=== PATIENT | male | born 1950 | race Caucasian/White ===

== ENCOUNTER 2025-02-10 10:00 | Emergency (ER) | payer OTHER, SELFPAY ==
[2025-02-10] VITALS (7 sets, daily range): BP systolic 104–158; BP diastolic 69–103; BMI 22.3
--- NOTE | 2025-02-10 10:19 | ED.GENMED ---
History of Present Illness
General
Chief Complaint: Fainting Sensation
Source: patient and spouse
Exam Limitations: none
Time Seen by Provider: 02/10/25 10:02
Nursing documentation reviewed up to this point in time: agreed with
History of Present Illness
History of Present Illness:
75-year-old male near-syncopal event while at [employer] just prior to arrival with standing, has some abdominal cramping likely to have a bowel movement felt flushed and was passed out no chest pain or shortness of breath has a AICD defibrillator no
shocks, no chest pain or shortness of breath no bloody stools no fever now he states he is feeling better he has had cardiac stent before, has been to [facility] in [facility] previously recently moved to the [facility]
Past History
Past History
ED Past Medical History: Arrthythmia and CAD
ED Past Surgical History: Cardiac
Social History
Tobacco: Non-smoker
Alcohol: None
Personal:
Living: with family
Review of Systems
Review of Systems
All Other Systems: Not applicable
Constitutional: Denies fever or fatigue
Cardiac: Reports syncope (Near syncope); Denies diaphoresis
ABD/GI: Reports abdominal pain (Abdominal cramp)
Neurological: Reports no symptoms
Endocrine: Reports no symptoms
Hematologic/Lymphatic: Reports no symptoms
Phy Exam
Physical Exam
Physical Exam:
Physical Exam
General: no apparent distress, not acutely ill
Neck: No tongue bite
Heart: s1/s2 regular rate and rhythm, no murmur. equal radial pulses.
Lungs: no acute respiratory distress. clear bilaterally
Abdomen: Nontender
Neuro: alert and oriented. no focal neurological deficits
Skin: no rash
Psychiatric: well kept. interactive and cooperative
Extremities: no edema. no calf tenderness.
Course
Orders/Labs/Results
Orders:
Orders
02/10/25 10:03
Electrocardiogram (*1) Urgent
Reason for Study: Chest Pain
Cardiac Monitoring- Treatment ONCE
EKG- Treatment ONCE
02/10/25 10:14
Complete Blood Count/With Diff Urgent
Comprehensive Metabolic Panel Urgent
Magnesium Urgent
Comment: ADD ON
Troponin I Urgent
02/10/25 10:18
Add On- LAB Urgent
Tests Added?: magnesium
Interrogate Pacemaker- Treatment ONCE
02/10/25 10:28
Prothrombin Time Urgent
Abnormal Lab Results
02/10/25 02/10/25
10:14 10:28
Hct 36.2 L %
(37.0-47.0)
Absolute Lymphs (auto) 1.1 L 10^3/uL
(1.2-3.4)
Absolute Monos (auto) 0.7 H 10^3/uL
(0.1-0.6)
Lymphocytes % 13.1 L %
(20.5-51.1)
PT 26.0 H Sec
(11.4-14.6)
BUN 23 H mg/dl
(9-20)
Glucose 148 H mg/dl
(70-99)
Total Protein 5.9 L g/dl
(6.3-8.2)
02/10/25 10:14
02/10/25 10:14
Vital Signs
Initial and Last Documented VS:
Initial Vital Signs
Pulse Resp Pulse Ox
69 21 99
02/10/25 10:03 02/10/25 10:03 02/10/25 10:03
Last Documented Vital Signs
Temp Pulse Resp BP Pulse Ox
98 F 65 16 158/85 95
02/10/25 10:04 02/10/25 10:30 02/10/25 10:30 02/10/25 10:07 02/10/25 10:30
MDM/Problems Addressed
Differential Diagnosis Includes:
Vasovagal, arrhythmia doubt ACS or PE
MDM/Problems Addressed:
You are seen
Chronic conditions affecting care: CAD and Arrhythmia
Acute Exacerbation and/or Progression of Chronic Illness: CAD and Arrhythmia
*Pulse Oximetry
SaO2: 100
Oxygen Mode of Delivery: Room air
Patient hypoxic: no
*EKG
Interpreted by ED Provider?: Yes
Interpretation: normal
Comparison EKG: no comparison EKG present
Heart Rate: 88
Rate: normal
Rhythm: sinus
Ischemia: non-specific ST changes
*Collection Clerk Interpretation
Rate: normal
Interpretation: normal
Heart Rate: 88
Rhythm: sinus
*Critical Care Note
Total Time (30-74mins, 75-104mins- exclusive of procedures): Not Applicable
Update Note
Update Note:
11:30 AM verbal report from nursing through [facility] no arrhythmia or shock
ED Attending Note
-
Portions of this chart may have been created with voice recognition software.� Occasional wrong word or��sound alike� substitutions may have occurred due to the inherent limitations of voice recognition software.
Discharge Plan
Departure
Referrals:
NONE,* [Family Provider, Internal Medicine]
Interventions
Interventions:
*Risk Screen - Suicide Last Done: 02/10/25 10:04
*General Assessment Last Done: 02/10/25 10:04
*Neglect/Abuse Screening Last Done: 02/10/25 10:04
ED- Cardiac Assessment Last Done: 02/10/25 10:46
ED- Neurological Assessment Last Done: 02/10/25 10:46
Discharge Date and Time
Print Language: ANGOLAN
[2025-02-10 10:22] LABS: % Basophils 0.4 % (0-2); % Eosinophils 3.8 % (0-6); % Immature Granulocytes 0.4 % (0-0.5); % Lymphocytes 13.1 % (20.5-51.1); % Monocytes 8.6 % (1.7-9.3); % Neutrophils 73.7 % (42.2-75.2); Absolute Eosinophils 0.3 10^3/uL (0-0.7); Absolute Lymphocytes 1.1 10^3/uL (1.2-3.4); Absolute Monocytes 0.7 10^3/uL (0.1-0.6); Absolute Neutrophils 6.1 10^3/uL (1.4-6.5); Hematocrit 36.2 % (37.0-47.0); Hemoglobin 12.7 g/dL (12.0-16.0); Mean Corp Hgb Conc. 35.1 g/dL (33.0-37.0); Mean Corpuscular Hgb 29.3 pg (27.0-31.0); Mean Corpuscular Volume 83.4 fL (81.0-99.0); Nucleated Red Blood Cells % 0 %; Platelet Count 193 10^3/uL (130-400); Red Blood Cell Count 4.34 10^6/uL (4.20-5.40); Red Cell Dist. Width 13.9 % (11.5-14.5); White Blood Cell Count 8.2 10^3/uL (4.8-10.8)
[2025-02-10 10:39] LABS: ALT (SGPT) 16 U/L (0-50); AST (SGOT) 21 U/L (17-59); Albumin 3.6 g/dl (3.5-5.0); Alkaline Phosphatase 45 U/L (38-126); Blood Urea Nitrogen 23 mg/dl (9-20); Calcium 9.3 mg/dl (8.4-10.2); Carbon Dioxide 27 mmol/L (22-30); Chloride 105 mmol/L (98-107); Estimated Creatinine Clearance 57 ml/min; Glucose 148 mg/dl (70-99); Magnesium 2.2 mg/dl (1.6-2.3); Potassium 4.7 mmol/L (3.5-5.1); Sodium 138 mmol/L (135-145); Total Bilirubin 0.5 mg/dl (0.2-1.3); Total Protein 5.9 g/dl (6.3-8.2); eGFR > 60.00
[2025-02-10 10:43] LABS: INR 2.38
[2025-02-10 10:46] LABS: Troponin I < 0.012 ng/ml
--- NOTE | 2025-02-10 11:28 | EDRN ---
[employer] [facility] rep called and said to this nurse no recent ventricular rhythms or tachycardia. device working fine.
--- NOTE | 2025-02-10 11:29 | EDRN ---
Dr. Monahan informed of device report from rep.
--- NOTE | 2025-02-10 12:34 | EDRN ---
Repeat troponin drawn and sent.
[2025-02-10 13:09] LABS: Troponin I < 0.012 ng/ml
== END 2025-02-10 14:32 | disposition home or self-care (01) ==
LOC: EMR 10:00
PROVIDERS: EMERGENCY PHYSICIAN Emergency Medicine
DX: R55 Syncope and collapse (principal); I25.10 Atherosclerotic heart disease of native coronary artery without angina pectoris; I49.3 Ventricular premature depolarization; Z95.810 Presence of automatic (implantable) cardiac defibrillator
CPT/HCPCS: 99283; 80053; 83735; 84484; 85025; 85610; 93005